=== PATIENT | female | born 1940 | race Caucasian/White ===

== ENCOUNTER 2017-05-30 16:54 | Inpatient (IN) | payer MEDICARE, BC ==
[~2017-05-30] VITALS: Ht 160 cm; Wt 54.9 kg
[2017-05-30 16:54] VITALS: BP 136/71
[~2017-05-30 16:54] MED LIST: ADVAIR HFA 230M12 GM INH; AEROSPAN8.9 GM IH; ALBUTEROL2.5 MG/0.5 INH; ALLEGRA ALLERGY60 MG PO; AMLODIPINE BESY10 MG PO; ASPIR 8181 MG PO; BACTRIM DS TAB1 EACH PO; BUMETANIDE0.25 MG/1 PO; CATAPRES0.2 MG PO; DOXYCYCLINE 10100 MG PO; DULCOLAX5 MG PO; FLAGYL500 MG PO; IBUPROFEN 800800 M1 PO; MIACALCIN3.7 ML NS; MIRALAX17 GM PO; NEXIUM40 MG PO; NORCO 5-325 TA1 EACH PO; REFRESH TEARS15 ML OP; SINGULAIR 10 MG10 M1 PO; SYSTANE ULTRA1 EACH OP; TOPICORT15 G2 TP; TRIAMCINOLONE A80 GM TRANSDERM; VITAMIN D1000 UNI1 PO; ZADITOR5 M1 OPHTHALMIC; ZPAK PO; [UNRECOGNIZED DRUG - OTHER] TOP
[2017-05-30] MEDS ORDERED: VITAMIN D3400 UNIT PO (17:02)
[2017-05-30] MEDS ORDERED: VITAMIN D1000 UNI1 PO (17:02)
[2017-05-30] MEDS ORDERED: HYDROCHLOROTH12.5 M1 PO (17:02)
[2017-05-30] MEDS ORDERED: SINGULAIR 10 MG10 M1 PO (17:02)
[2017-05-30] MEDS ORDERED: ELIQUIS5 MG PO (17:03)
[2017-05-30] MEDS ORDERED: FOLIC ACID1 MG PO (17:03)
[2017-05-30] MEDS ORDERED: TRAMADOL 50 MG50 MG PO (17:03)
[2017-05-30] MEDS ORDERED: VENTOLIN HFA 1818 GM INH (17:03)
[2017-05-30] MEDS ORDERED: NORVASC10 MG PO (17:03)
[2017-05-30] MEDS ORDERED: METAMUCIL1 EAC1 PO (17:04)
[2017-05-30] MEDS ORDERED: NATURE'S TEARS15 M1 OPHTHALMIC (17:04)
[2017-05-30] MEDS ORDERED: ALLERGY EYE DRO10 ML OPHTHALMIC (17:04)
[2017-05-30] MEDS ORDERED: MIRALAX17 GM PO (17:04)
[2017-05-30] MEDS ORDERED: SYNTHROID25 MCG PO (17:05)
[2017-05-30] MEDS ORDERED: ASPIR 8181 MG PO (17:05)
[2017-05-30] MEDS ORDERED: OMEPRAZOLE 20 M20 M1 PO (17:05)
[2017-05-30] MEDS ORDERED: LASIX 40 MG TAB40 M2 PO (17:05)
[2017-05-30] MEDS ORDERED: POTASSIUM20 PO (17:05)
[2017-05-30] MEDS ORDERED: ENSURE PO (17:06)
[2017-05-30] MEDS ORDERED: OSELB75 PO (17:06)
[2017-05-30] MEDS ORDERED: ATIVAN0.5 MG PO (17:06)
[2017-05-30 18:34] LABS: HEMATOCRIT 37.2 % (37.0-47.0); HEMOGLOBIN 11.9 gm/dL (12.0-15.0); MCH 28.4 pg (26.0-34.0); MCHC 31.9 g/dL (28.0-37.0); MPV 7.6 fl. (7.2-11.1); NUCLEATED RBCS 0 /100WBC; PLATELET COUNT* 327 thou/uL (150-400); RBC 4.18 mil/uL (4.20-5.00); RDW-CV 15.8 % (10.5-14.5); WBC 15.1 thou/uL (4.0-11.0)
[2017-05-30 18:49] LABS: BE 10.4 mmol/L (-2 to +3); HCO3 36.3 mmol/L (22.0-26.0); PO2 77.7 mmHg (75.0-100.0); pH 7.441 (7.340-7.450)
[2017-05-30 18:53] LABS: PCO2 54.5 mmHg (35.0-45.0)
[2017-05-30 19:08] LABS: ABSOLUTE LYMPHOCYTES 0.6 thou/uL (0.8-5.3); ABSOLUTE MONOCYTES 0.5 thou/uL (0.0-1.2)
[2017-05-30 19:09] LABS: PLATELET ESTIMATE ADEQUATE
[2017-05-30 20:02] LABS: CALCIUM 9.1 mg/dL (8.5-10.1); CREATININE 0.9 mg/dL (0.6-1.3); MAGNESIUM 2.1 mg/dL (1.8-2.4); TOTAL PROTEIN 8.8 g/dL (6.4-8.2)
[2017-05-30 20:03] LABS: ALBUMIN 2.4 g/dL (3.4-5.0)
[2017-05-30 20:05] LABS: POTASSIUM 2.7 mmol/L (3.5-5.1)
[2017-05-30 20:07] LABS: TOTAL BILIRUBIN 0.3 mg/dL (<0.1-1.0)
[2017-05-30 20:54] VITALS: BP 114/55
--- NOTE | 2017-05-30 21:07 | NUR ---
MOVING PT FROM ROOM TO TRANSFER TO FLOOR. PT'S SAT DECREASED TO [address] SHIELDS NOTIFIED AND NON REBREATHER MASK PLACED ON PT AND IV FLUID BOLUS OF NS AT 500CC PER HOUR DISCONTINUED
--- NOTE | 2017-05-30 21:28 | NUR ---
PT IS 98 PERCENT ON NON REBREATHER MASK.. PT BREAKING IN HIVES NOW. VANCOMYCIN STOPPED PER DR SHIELDS. 30ML INFUSED. PT IS GOING TO GET BENADRYL 25 MG
--- NOTE | 2017-05-30 21:39 | NUR ---
MAT [facility] CALLED AND NOTIFIED OF FLUID CHANGES , OXYGEN SAT., PT'S CHANGE TO A NON REBREATHER AT 15 ML. STOPPAGE OF VANCOMYCIN AND BENADRYL 25 MG ADMINISTRATION
--- NOTE | 2017-05-30 21:59 | NUR ---
DR DOS SANTOS CALLED AND NOTIFIED OF VANCOMYCIN REACTION, FLUID INFUSION, DECREASED O2 SAT'S AND CHANGE TO VENTI MASK PER DR SHIELDS, MEDICATION ADMINISTRATION AND LOW POTASSIUM
[2017-05-30 22:30] VITALS: BP 119/58
[2017-05-31 03:53] VITALS: BP 125/67
[2017-05-31 04:52] LABS: BE 2.3 mmol/L (-2 to +3); HCO3 27.3 mmol/L (22.0-26.0); PCO2 43.7 mmHg (35.0-45.0); PO2 68.1 mmHg (75.0-100.0); pH 7.413 (7.340-7.450)
[2017-05-31 05:05] LABS: ABSOLUTE LYMPHOCYTES 0.3 thou/uL (0.8-5.3); ABSOLUTE MONOCYTES 0.1 thou/uL (0.0-1.2); ABSOLUTE NEUTROPHILS 12.4 thou/uL (1.6-8.1); BASOPHILS 0.1 %; HEMATOCRIT 35.2 % (37.0-47.0); HEMOGLOBIN 11.2 gm/dL (12.0-15.0); LYMPHOCYTES 2.5 %; MCH 28.5 pg (26.0-34.0); MCHC 31.8 g/dL (28.0-37.0); MCV 89.8 fL (80.0-100.0); MONOCYTES 1.1 %; MPV 7.7 fl. (7.2-11.1); NUCLEATED RBCS 0 /100WBC; PLATELET COUNT* 311 thou/uL (150-400); POLYS 96.3 %; RBC 3.92 mil/uL (4.20-5.00); RDW-CV 15.8 % (10.5-14.5); WBC 12.9 thou/uL (4.0-11.0)
--- NOTE | 2017-05-31 05:09 | NUR ---
PT TO FLOOR AT 2200 AND ASSUMED CARE. PT ON 10L HIGH FLOW. PT HAS CONFUSION AT HS PER SON. PT IS BEDREST. X1-2 ASSIST. FLUIDS RUNNING 150 ML/H. CONTINIOUS O2 MONITOR. O2 SAT IS 94-97. PT MED/SURG. VITALS WNL. FALL PRECAUITONS IN PLACE. HOURLY ROUNDING FOR SAFETY.
[2017-05-31 05:20] LABS: CALCIUM 8.7 mg/dL (8.5-10.1); CREATININE 0.8 mg/dL (0.6-1.3); POTASSIUM 3.6 mmol/L (3.5-5.1)
[2017-05-31 08:30] VITALS: BP 131/62
--- NOTE | 2017-05-31 12:56 | NUR ---
CM ASSESSMENT: Pt is A&Ox1-2. Resides at [facility]. Spoke with Pt's son, Kam. Pt is [place] bound and requires total assists with ADLs. Pt had been on o2 since this past Monday, when she was diagnosed with Type A flu. Goal is for Pt to return to [facility] at dc, confirmed that Pt can return with Chau, admissions at [facility]. Following for dc needs.
--- NOTE | 2017-05-31 16:40 | NUR ---
RECEIVED REPORT FROM NOC RN. PT SITTING UPRIGHT IN BED, LEANING FORWARD. PT APPEARS WEAK, UNABLE TO COMMUNICATE NEEDS TO STAFF. VS OBTAINED, ASSESSMENT COMPLETE. MED/SURG STATUS. NO C/O PAIN. PT HAS CONGESTED COUGH BUT UNABLE TO EXPECTORATE SPUTUM. IV FLUIDS INFUSING ORDERED. ASSISTED WITH MILK AND ORANGE JUICE, PT REFUSES SOLID FOOD. PT SKIN REDDENED, YET BLANCHABLE, ON PERINIUM AND COCCYGEAL AREA. Q2 TURNS BY STAFF ARE NOT TOLERATED WELL BY PATIENT. PT STATES SHE WANTS STAFF TO TAKE PILLOWS/WEDGES OUT. POSITIONED BED IN REVERSE TRENDELENBERG WITH HOB UP, PT DID NOT TOLERATE THIS POSITION EITHER. PROVIDING FREQUENT INCONTINENCE CARE AND APPLYING BARRIER CREAM TO PERINIUM AND COCCYGEAL AREA. DURING ROUNDING, FOUND PT TO HAVE TAKEN OFF GOWN AND PULLED IV OUT. CHANGED LINENS/GOWNS AND RESTARTED IV IN R UE. PT ELIZABETH WELL. PROVIDED EDUCATION ABOUT NEED TO SHIFT WEIGHT SIDE TO SIDE TO MAINTAIN SKIN INTEGRITY. NEEDS REINFORCEMENT OF TEACHING. FREQUENT OBSERVATION WITH HOURLY ROUNDING. NEEDED ITEMS AND CALL LIGHT IN REACH.
--- NOTE | 2017-05-31 17:33 | EKG ---
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 RO : 1940 Requested By: Eloina Pizano Order Number: [id number] MD: Wyatt Trevizo Measurements Intervals Sperry Rate: 112 P: UT: QRS: -21 QRSD: 100 T: 140 QT: 314 QTc: 429 Interpretive Statements Atrial fibrillation Left axis deviation Nonspecific repol abnormality, diffuse leads Compared to ECG 01/10/2015 00:08:18 Sinus rhythm no longer present First degree AV block no longer present Electronically Signed On 05-31-2017 17:33:37 PHONE TRIAGE SPECIALIST by Wyatt Trevizo [email or web address] <ELECTRONICALLY SIGNED> By: Wyatt Trevizo MD, FACC 05/31/17 1733 1659 1659 Wyatt Trevizo MD, FAC /EPI
[2017-05-31 20:10] VITALS: BP 124/71
[2017-06-01 04:30] VITALS: BP 123/62
--- NOTE | 2017-06-01 04:57 | NUR ---
PT ALERT TO SELF AND CONFUSED AT HS. PT TOOK OF O2 SAT DROPED TO LOW 80'S, O2 REPLACED AND SAT IS 100 ON 10L HIGH FLOW. Q2 TURNS. MED SURGE PT. PT ON BEDREST. VITALS WNL. FALL PRECAUTIONS IN PLACE. HOURLY ROUNDING FOR SAFETY.
[2017-06-01 04:59] LABS: ABSOLUTE LYMPHOCYTES 0.4 thou/uL (0.8-5.3); ABSOLUTE MONOCYTES 0.2 thou/uL (0.0-1.2); ABSOLUTE NEUTROPHILS 7.1 thou/uL (1.6-8.1); BASOPHILS 0.1 %; HEMOGLOBIN 10.8 gm/dL (12.0-15.0); LYMPHOCYTES 5.1 %; MCH 28.5 pg (26.0-34.0); MCHC 31.7 g/dL (28.0-37.0); MCV 89.9 fL (80.0-100.0); MONOCYTES 2.9 %; NUCLEATED RBCS 0 /100WBC; PLATELET COUNT* 315 thou/uL (150-400); POLYS 91.9 %; RBC 3.78 mil/uL (4.20-5.00); RDW-CV 15.5 % (10.5-14.5); WBC 7.7 thou/uL (4.0-11.0)
[2017-06-01 05:24] LABS: CALCIUM 8.6 mg/dL (8.5-10.1); CREATININE 0.8 mg/dL (0.6-1.3); POTASSIUM 3.4 mmol/L (3.5-5.1)
[2017-06-01 05:57] LABS: BE 6.1 mmol/L (-2 to +3); HCO3 33.3 mmol/L (22.0-26.0); pH 7.347 (7.340-7.450)
[2017-06-01 06:00] LABS: PCO2 62.2 mmHg (35.0-45.0); PO2 165.9 mmHg (75.0-100.0)
[2017-06-01 08:00] VITALS: BP 119/72
--- NOTE | 2017-06-01 11:26 | CON ---
[address] [address] CONSULTATION Name: CHRIS BYRNE Room: [address] IN .R.#: [id number] Admission: 05/30/17 Attend Phys: Xenia Oconnell Discharge: Date of : 36 Report #: [id number] THIS REPORT FOR: //name// CC: Wyatt Boyle DATE OF SERVICE: 05/31/2017 INFECTIOUS DISEASE CONSULTATION ATTENDING PHYSICIAN: Arturo Boyle DO REASON FOR EVALUATION: Influenza complicated by pneumonitis. HISTORY OF PRESENT ILLNESS: Chart reviewed, patient examined. A 76-year-old woman with history of some asthma, question COPD who was evaluated in the Emergency Room, was confirmed to have influenza A the day prior, had progressive shortness of breath, was found to have oxygen saturations in the 80%. She appears to be quite ill, has poor appetite with p.o. intake, has not had significant cough. No nausea or diarrhea. She was empirically placed on linezolid in addition to Tamiflu. ALLERGIES: Listed to PENICILLINS, CEPHALOSPORINS, QUINOLONES. CURRENT MEDICATIONS: Include apixaban, linezolid, levothyroxine, pantoprazole, furosemide, aspirin, amlodipine, Tamiflu, p.r.n. analgesics, antiemetics, methylprednisolone. PAST MEDICAL AND SURGICAL HISTORY: As noted above, history of hypertension, arthritis, reflux and recurrent urinary tract infections, right iliac vein thrombosis, history of leukemia, previous cholecystectomy, hemorrhoidectomy. SOCIAL HISTORY: Nonsmoker, no ethanol. FAMILY HISTORY: Noncontributory. REVIEW OF SYSTEMS: As above. PHYSICAL EXAMINATION: GENERAL: She appears chronically ill with acute distress. She has decreased responsiveness, appears markedly undernourished. VITAL SIGNS: Temperature 98.3, pulse 97, respirations 20, blood pressure 125/67. SKIN: Warm, dry. HEENT: Unremarkable. NECK: [place] [address] CONSULTATION Name: MOLLY HESTERCHRIS E Room: [address]#: [id number] Admission: 05/30/17 Attend Phys: Xenia Oconnell Discharge: Date of : 38 Report #: [id number] LUNGS: Diminished breath sounds. HEART: Regular. Borderline tachycardic. I do not appreciate any murmur. ABDOMEN: Soft. There are no apparent peritoneal signs. GENITOURINARY: Deferred. RECTAL: Deferred. LABORATORY DATA: TSH of 1.065. Blood cultures negative thus far. Prealbumin 11.4. Electrolytes: Sodium 142, potassium 3.6, chloride 102, bicarbonate is 32, BUN and creatinine 41 and 0.8, estimated GFR of 69. CBC: White count 12.9, H and H 11.2 and 35.2, platelets of 311. She has a lymphocytopenia of 300. ABGs: A pH 7.413, pCO2 of 43.7, pO2 of 68.1 on 10 liters. Albumin of 2.4, total protein of 8.8 and LFTs unremarkable. Chest x-ray, some vascular congestion with diffuse infiltrate, more focal bilateral infiltrates suggesting pneumonitis. Lactic acid of 1.3. ASSESSMENT AND PLAN: Influenza perhaps complicated by early pneumonitis. We will continue the linezolid as an antibacterial. We will add gram-negative coverage. She certainly looks as if she may have some occult process. We will check serum protein electrophoresis given the elevated serum protein count. She is quite tenuous at this point. We will have to monitor expectantly, may worsen before she improves. <ELECTRONICALLY SIGNED> By: Sal Sharma MD 06/01/17 1126 1514 [id number] Sharma MD /nt
--- NOTE | 2017-06-01 11:37 | CON ---
[address] [address] CONSULTATION Name: CHRIS BYRNE Room: [address] IN ..#: [id number] Admission: 05/30/17 Attend Phys: Xenia Oconnell Discharge: Date of : 36 Report #: [id number] THIS REPORT FOR: //name// CC: Wyatt Boyle REASON FOR CONSULTATION: Respiratory failure. HISTORY OF PRESENT ILLNESS: The patient is a 76-year-old female patient who is a poor historian. I did review the medical records and discussed with the nursing staff. She presented and admitted through the Emergency Room with shortness of breath that started on the 05/30/2017 in the morning hours. She had the diagnosis of influenza A the day prior to hospitalization. Her O2 saturation was noted to be in 80%, although it improved with nasal cannula and actually at one point, she was placed on nonrebreather. Apparently, her son was in the ER who confirmed that she was on Tamiflu that started the day before hospitalization, but she continued to decline. Overnight, the patient's oxygen need increased. She is currently on 15 liters oxygen, although she is 95% on 15 liters. She looks comfortable to me. She said she smoked for a long time, but she quit. She is not sure if she has COPD and she does not have oxygen at home. Her ABGs upon presentation showed mild hypercapnia; however, the hypercapnia increased with the repeat ABGs, although the pH remained normal. ALLERGIES: CEPHALEXIN, LATEX, LEVOFLOXACIN, AND PENICILLIN. MEDICATIONS AT HOME: She is on apixaban, tramadol, hydrochlorothiazide, Lasix, levothyroxine, potassium supplement, aspirin, Singulair. PAST MEDICAL HISTORY: Includes history of PE, history of muscle weakness, history of leukemia, history of thrombosis of the right iliac vein, history of gastroesophageal reflux disease, asthma. PAST SURGICAL HISTORY: Include left arm surgery, hemorrhoidectomy, cholecystectomy, left breast cyst removal. SOCIAL HISTORY: The patient told me she smoked before, but she quit smoking. Does not drink alcohol excessively, does not abuse drugs. FAMILY HISTORY: Reviewed and noncontributory. REVIEW OF SYSTEMS: 14 systems reviewed with patinet, negative other than what is mentioned above, but please note ptient is a poor historian PHYSICAL EXAMINATION: VITAL SIGNS: She is on 15 liters oxygen, O2 saturation 95%, [place] [address] CONSULTATION Name: CHRIS BYRNE Room: [address]#: [id number] Admission: 05/30/17 Attend Phys: Xenia Oconnell Discharge: Date of : 36 Report #: [id number] 123/62, pulse rate of 92, temperature 36.2. GENERAL: Thin lady lying in bed, poor historian, overall comfortable, not in distress, although she is on 15 liters oxygen. HEENT: Head normocephalic, atraumatic. Pupils are equal, reactive to light. External ear looks healthy and normal. Oral cavity, Mallampati of 2, moist mucous membrane. NECK: Supple. No palpable lymph node. No palpable thyroid. Trachea central. HEART: S1, S2. No murmur, no gallop. CHEST: Diminished air movement bilaterally. No definite wheezes or added sounds, although poor air movement, some localized rhonchi on the left lung base. ABDOMEN: Benign, soft, lax, nontender. No rebound, no rigidity. Positive bowel sounds. EXTREMITIES: Lower extremity, no calf tenderness, no clubbing, no cyanosis and no edema noted. NEUROLOGIC: Alert. SKIN: Normal for age and race, warm and dry. LYMPHATICS: No palpable lymph node. She had chest x-ray during this hospitalization that showed vascular congestion with diffuse infiltrates suggesting edema and basilar infiltrates. Her white blood count was 15.1 and upon hospitalization improved to 7.7, hemoglobin of 11.9 and platelets of 327 with slight left shift on the differential. ABGs, she had 3 sets of ABGs, the last set 7.34/62/165 and this was done on 15 liters oxygen. Her creatinine today is 0.8, potassium is 3.4, BUN 50 and glucose 169. CURRENT MEDICATIONS: It was noted she was started on Lasix IV today. She is on apixaban, she on aztreonam, she is on Zyvox, she is on Tamiflu, hydrochlorothiazide, Norvasc, lorazepam, guaifenesin and potassium replacement protocol. IMPRESSION: 1. Acute hypoxemic respiratory failure and hypercapnic respiratory failure. 2. Pneumonia. 3. Vascular congestion, suggestive of fluid overload, possible congestive heart failure. 4. Chronic obstructive pulmonary disease exacerbation. 5. history of leukemia. PLAN: At this point, I would continue current therapy. She is on apixaban with a chest x-ray showing congestion. I agree with IV diuresis, keeping her negative fluid balance. I would continue the steroids. I just added scheduled nebulization treatment. There is questionable aspiration, so I asked speech to see her. We will keep her n.p.o. except medications untill she is evaluated by speech. We will do repeat ABG and chest x-ray in the morning. [address] [address] CONSULTATION Name: CHRIS BYRNE Room: [address] IN ..#: [id number] Admission: 05/30/17 Attend Phys: Xenia Oconnell Discharge: Date of : 38 Report #: [id number] Thank you for the consult. We will follow along with you. <ELECTRONICALLY SIGNED> By: Huber Bhagat MD 06/01/17 1137 1037 [id number] Bhagat MD /nt
[2017-06-01 11:58] VITALS: BP 114/43
--- NOTE | 2017-06-01 19:45 | NUR ---
ASSUMED PT CARE AT 0730, FULL ASSESMENT DONE CHARTED. PT NOT PROGRESSING TOWARD GOALS. PT ORINETED X2, C/O PAIN IN HEAD, ATTEMPTED TO GIVE PT TRAMADOL, SHE REFUSED TO DRINK. PT ON 10L HIGH FLOW NC, ABNORMAL ABGS REPORTED BY NIGHT RN, PULMONOLGIST IN TO SEE PT. ORDERED BIPAP. SPEECH ASSESED PT THIS EVENING. PT ABLE TO DRINK HONEY THICK LIQUIDS. PT PLACED BACK ON BIPAP BUT CONSTANTLY TAKES IT OFF OR PULLS ON IT. PT EDUCATED SEVERAL TIMES THAT SHE NEEDS TO LEAVE IT IN PLACE. PT FOUND WITH IT OFF AT SHIFT CHANGE, ATTEMPTING TO DRINK. PT REFUSES TO HAVE IT ON. PT PLACED ON 10 L HIGH FLOW. PTS BOTTOM RED, PICTURE TAKEN AND WOUND NURSE CONSULT PLACED. PT TURNED Q 2 HRS, IS INCONT OF URINE. PTS SON HERE THIS EVENING, EDUCATED ON PLAN OF CARE. REPORT GIVEN TO ONCOMING RNJACQUELIN.
[2017-06-01 21:02] VITALS: BP 132/65
[2017-06-02 04:00] VITALS: BP 125/70
--- NOTE | 2017-06-02 05:06 | NUR ---
PT IS ABLE TO COMMUNICATE HER NEEDS TO STAFF WITH MINOR DIFFICULTY; SHE IS FORGETFUL AND OFTEN CALLS OUT INSTEAD OF USING HER CALL LIGHT. SHE CALLS FREQUENTLY BECAUSE SHE FORGETS THAT SHE HAD JUST CALLED. CURRENT PAIN MEDICATION REGIMEN HAS BEEN ADEQUATE FOR CONTROLLING HER PAIN UP TO THIS TIME. DROPLET ISOLATION PRECAUTIONS FOR POSITIVE FLU SWAB MAINTAINED. SHE REFUSED TO WEAR HER BIPAP FOR MORE THAN 1HR OVERNIGHT, DESPITE SEVERAL ATTEMPTS TO KEEP IT ON HER. SHE HAS ALSO REFUSED SCHEDULED TURNS SAYING SHE IS "CROOKED" OR "UNCOMFORTABLE". SHE IS TENTAIVELY SCHEDULED FOR A VIDEO SWALLOW STUDY TODAY.
[2017-06-02 05:36] LABS: CALCIUM 8.7 mg/dL (8.5-10.1); CREATININE 0.9 mg/dL (0.6-1.3); POTASSIUM 3.5 mmol/L (3.5-5.1)
[2017-06-02 06:01] LABS: BE 6.6 mmol/L (-2 to +3); HCO3 32.6 mmol/L (22.0-26.0); PO2 97.1 mmHg (75.0-100.0)
--- NOTE | 2017-06-02 09:12 | NUR ---
Nutrition: Pt admitted with Influenza A. Assessed for pressure ulcer risk. Coccyx/bottom is only red, per RN note. Patient turned for skin integrity. Wt: 124#. RX noted. H/o CKD II, GERD, HTN. Ground diet, Honey thickened. Loose BM 05/31. Albumin 2.4, prealbumin 11.4. No nutrition intervention needed at this time. Please offer Beneprotein if po intake <60% of meals, or if pt develops a wound. Mild risk.
[2017-06-02 09:30] VITALS: BP 114/70
--- NOTE | 2017-06-02 11:14 | NUR ---
WOUND CARE NOTE: CONSULT RECEIVED FOR POSSIBLE COCCYX WOUND. PATIENT PRESENTS WITH BLANCHABLE REDENSS TO ENTIRE SACROCOCCYGEAL REGION, WHICH HAS STARTED TO RESOLVE ONCE TURNED. PATIENT DOES COMPLAIN OF PAIN AT HER TAILBONE. AT THE COCCYX THERE IS A SMALL AREA, APPROXIMATELY 0.2X0.2X0.1 AREA OF PARTIAL THICKNESS TISSUE LOSS, BUT DO NOT BELIEVE IT IS A PRESSURE ULCER. PATIENT IS INCONTINENT, ASSISTED WITH CHANGING CHUX. APPLIED BARRIER OINTMENT AND TURNED PATIENT TO HER RIGHT SIDE. EDUCATED PATIENT ON IMPORTANCE OF STAYING OFF AREA, BUT WILL NEED REINFORCEMENT SHE IS CONFUSED AND DESIRES TO STAY IN AN UPRIGHT POSITION WITHOUT POSITIONING DEVICES. RECOMMEND TURN Q2 HOURS, LIMIT HOB <30 DEGREES BARRIER OINTMENT BID AND PRN FREQUENT CHECKS FOR INCONTINENCE LIMIT LAYERS OF LINEN UNDER PATIENT
[2017-06-02 11:30] VITALS: BP 120/54
[2017-06-02 12:11] LABS: GLOBULIN TOTAL 5.1 g/dL (2.2-3.9); M-SPIKE 2.5 g/dL (Not Observed)
--- NOTE | 2017-06-02 18:09 | NUR ---
ASSUMED PT CARE AT 0700 PT IS CONFUSED WILL NOT USE CALL LIGHT SCREAMS OUT FOR HELP AND THEN WILL NOT BE ABLE TO TELL YOU WHAT PT WANTS, PT BUTTOCK IS RED WOUND CARE ASSESSED PT AND ORDERED FOR PT TO BE TURNED Q 2 HOURS AND OFFLOAD PT IS UPSET ABOUT THIS WANTS TO SIT ALL THE WAY UP IN BED UNABLE TO SINCE PT CAN NOT BE MORE THAN 30 DEGREES PER WOUND CARE, PT IS INCONTIENT, PT IS MED SURG, PT HEART RATE IS TACHY PT HAS SOME ANXIETY, VIDEO SWALLOW DONE AND SPEECH RECOMMENDS THAT PT HAS ALTERNATIVE METHODS FOR FOOD AND MEDICATIONS PT IS NPO EXCEPT ICE CHIPS AND SMALL SIPS OF WATER WITH SPOON, PT IS ON 6-7L/HIFLOW OXYGEN, WILL CONTINUE TO MONITOR
[2017-06-02 20:00] VITALS: BP 135/63
[2017-06-03] VITALS: BP 130/62
[2017-06-03 05:24] LABS: HEMATOCRIT 32.7 % (37.0-47.0); HEMOGLOBIN 10.9 gm/dL (12.0-15.0); MCH 29.1 pg (26.0-34.0); MCHC 33.2 g/dL (28.0-37.0); MCV 87.6 fL (80.0-100.0); MPV 8.2 fl. (7.2-11.1); NUCLEATED RBCS 0 /100WBC; PLATELET COUNT* 295 thou/uL (150-400); RBC 3.74 mil/uL (4.20-5.00); RDW-CV 15.4 % (10.5-14.5); WBC 6.1 thou/uL (4.0-11.0)
[2017-06-03 06:02] LABS: BE 9.8 mmol/L (-2 to +3); HCO3 35.5 mmol/L (22.0-26.0); PO2 108.8 mmHg (75.0-100.0)
[2017-06-03 06:04] LABS: CALCIUM 8.4 mg/dL (8.5-10.1); CREATININE 0.7 mg/dL (0.6-1.3); POTASSIUM 3.1 mmol/L (3.5-5.1)
[2017-06-03 07:18] LABS: ABSOLUTE LYMPHOCYTES 0.2 thou/uL (0.8-5.3); ABSOLUTE MONOCYTES 0.1 thou/uL (0.0-1.2); ABSOLUTE NEUTROPHILS 5.9 thou/uL (1.6-8.1); PLATELET ESTIMATE ADEQUATE
--- NOTE | 2017-06-03 07:30 | NUR ---
PATIENT RESTING IN BED. REPORT GIVEN TO ONCOMING NURSE. REMAINS IN ISOLATION FOR FLU +. BED ALARM ON. WILL MONITOR.
[2017-06-03 09:30] VITALS: BP 149/79
--- NOTE | 2017-06-03 15:39 | NUR ---
ASSUMED PT CARE AT 0700 PT IS ALERT TO SELF PT IS A FALL RISK BED ALARM IS ON, PT WILL NOT KEEP OXYGEN ON HAVE TO REEDUCATE PT TO KEEP O2 ON SO PT CAN BREATHE, PT WILL NOT USE CALLLIGHT SCREAMS OUT INAAPROPRIATELY STAFF HAS BEEN IN ROOM FREQUENTLY, PT DENIES PAIN, PT IN IN ISOLATION FOR FLU, PT REFUSES TO BE TURNED PT REFUSES TO KEEP HEAD OF BED AT 30 WILL CONTINOUSLY SCREAM OUT REEDUCATE PT ON THE PURPOSE OF KEEPING THE HOB AT 30 TO PREVENT SKIN BREAKDOWN PT HAS REDNESS ON COCCYX AND HAS PAIN, WILL CONTINUE TO MONITOR
[2017-06-03 16:37] VITALS: BP 136/66
--- NOTE | 2017-06-03 17:03 | NUR ---
ORDERS RECEIVED AND COMPUTERIZED DOCUMENTATION REVIEWED. PER CASE MANAGEMENT REPORT, PATIENT IS W/C BOUND AND REQUIRES TOTAL ASSISTANCE. SKILLED P.T. IS NOT WARRANTED A RESULT, PATIENT PATIENT IS ALREADY FUNCTIONING AT HER BASE-LINE MOBILITY STATUS. THANK-YOU FOR THIS REFERRAL. SNEHAL SMITH,MPT
[2017-06-03 19:45] VITALS: BP 136/69
[2017-06-04] VITALS: BP 136/67
[2017-06-04 05:15] LABS: HEMATOCRIT 34.7 % (37.0-47.0); HEMOGLOBIN 11.4 gm/dL (12.0-15.0); MCH 28.9 pg (26.0-34.0); MCHC 32.8 g/dL (28.0-37.0); MCV 88.3 fL (80.0-100.0); MPV 8.3 fl. (7.2-11.1); RBC 3.93 mil/uL (4.20-5.00); RDW-CV 15.5 % (10.5-14.5); WBC 6.8 thou/uL (4.0-11.0)
--- NOTE | 2017-06-04 05:21 | NUR ---
END SHIFT: PT HAS BEEN RESTLESS AND YELLING OUT ALL SHIFT. PT IS VERY CONFUSED. DROPLET PRECAUTIONS MAINTAINED. SWALLOW PRECAUTIONS MAINTAINED. PT IS MORE WEAK THIS AM. WITH MORNING MEDICATIONS PT WAS UNABLE TOLERATE SPOONFUL OF WATER WITH CRUSHED MEDICATIONS. HAS REMAINED STRICT NPO AFTER THIS. 7 LITERS HIGH FLOW NC. SAFETY PRECAUTIONS IN PLACE. PERFORMED HOURLY ROUNDING. WILL CONT TO MONITOR.
[2017-06-04 05:50] LABS: ALBUMIN 2.3 g/dL (3.4-5.0); CALCIUM 8.4 mg/dL (8.5-10.1); CREATININE 0.7 mg/dL (0.6-1.3); POTASSIUM 3.6 mmol/L (3.5-5.1); TOTAL BILIRUBIN 0.3 mg/dL (<0.1-1.0); TOTAL PROTEIN 6.7 g/dL (6.4-8.2)
[2017-06-04 09:57] VITALS: BP 165/75
--- NOTE | 2017-06-04 14:55 | NUR ---
ASSUMED CARES AT 0700 WITH BEDSIDE REPORT. PT IN BED, BED IN LOW AND LOCKED POSITION WITH BED ALARM ON FOR PT SAFETY. CALL BUTTON IN REACH. PT A&O X2-3, VERY CONFUSED AND FORGETFUL, REPEATS QUESTIONS AND STATEMENTS MULTIPLE TIMES. PT YELLS OUT FOR HELP EVEN WITH STAFF RIGHT NEXT TO HER PROVIDING CARES. VSS ON 7L O2 HIGH FLOW. O2 STATS HOLDING BETWEEN 98-100% WITH CONTINUOUS PULSEOX MONITORING WITH PROBE ON RIGHT GREAT TOE. HOURLY ROUNDING AND Q2 TURNS CONTINUE. BUTTOCK COLOR IMPROVING, LESS RED. MD ORDERS UP WITH ASSIST TOLERATED. PT MED SURG STATUS, NO TELE. HR IRREGULAR AND OCC TACHYCARDIC PER AUSCULTATION APICAL AND RADIAL PULSES. AFEBRILE, PERRL, HEELS FLOATED WITH PILLOWS, LOTION ON LE, JUDITH CARE, BED BATH PROVIDED. PT ASPIRATION RISK PER SWALLOW STUDY, ICE CHIPS PROVIDED, MEDS CRUSHED IN PUDDING AND GIVEN WITH SMALL BITES SLOWLY TOLERATED, NO CHOKING. IV ABT INFUSING, TOLERATED, NO AVR. PT NPO TO MEALS AT THIS TIME. BED LINES CHANGED. PT PUSHES BUTTONS GREASE PRESS HELPER BUTTON RANDOMLY WITHOUT KNOWING WHICH BUTTON SHE IS PRESSING. NURSE WATCHED PT PRESS TV CHANNELS UP AND DOWN WITHOUT LOOKING AT TV, PRESSING RED NURSE CALL BUTTON WITH STAFF AT BEDSIDE. WILL CONTINUE TO MONITOR PT PROGRESS SHE STAYS ON DROPLET PRECAUTIONS FOR INFLUENZA AT THIS TIME.
[2017-06-04 17:00] VITALS: BP 140/71
--- NOTE | 2017-06-04 17:21 | NUR ---
PT TRANSFERED TO ROOM 305 AT 1715. ALL OF PT BELONGINGS PACKED AND TAKEN WITH PT. IV MEDICATIONS PULLED FROM 2W MED ROOM AND TAKEN TO 3, CHART AND ISOLATION CART TAKEN WITH PT. REPORT TO STAN JANSEN NURSE GIVEN VIA PHONE. PT STABLE, ALERT, QUIET, COOPERATIVE AT TRANSFER.
--- NOTE | 2017-06-04 19:36 | NUR ---
PATIENT TRANSFERRED TO ROOM 305 THIS EVENING. NO DISTRESS NOTED, PATIENT COMPLIANT WITH CARE AND ASSESSMENT. DENIES PAIN, CONT TO TURN EVERY 2 HRS, SIDE TO SIDE. INCONTINENT OF BOWEL AND BLADDER, HIGH RISK FOR ALTERATION IN SKIN INTEGRITY, SKIN WARM, DRY, INTACT, SACRAL AREA WITH SLIGHT REDNESS, FREE OF OPEN AREAS OR PRESSURE INJURY . NS INFUSING @ 30 ML/HR VIA 20G TO LEFT UPPER ARM WITHOUT DIFFICULTY. TOLERATES THICKENED LIQUID WITHOUT DIFFICULTY. VITAL SIGNS STABLE, NO DISTRESS NOTED, CONTINUES ON DROPLET PRECAUTIONS FOR POTENTIAL VIRUS.
[2017-06-04 22:00] VITALS: BP 130/74
[2017-06-05 04:27] LABS: MCH 29.1 pg (26.0-34.0); MCHC 34.4 g/dL (28.0-37.0); MCV 84.4 fL (80.0-100.0); MPV 7.9 fl. (7.2-11.1); RBC 3.79 mil/uL (4.20-5.00); RDW-CV 15.6 % (10.5-14.5); WBC 7.6 thou/uL (4.0-11.0)
[2017-06-05 06:07] LABS: ALBUMIN 2.3 g/dL (3.4-5.0); CALCIUM 8.5 mg/dL (8.5-10.1); CREATININE 0.7 mg/dL (0.6-1.3); TOTAL BILIRUBIN 0.4 mg/dL (<0.1-1.0); TOTAL PROTEIN 6.7 g/dL (6.4-8.2)
[2017-06-05 06:13] LABS: POTASSIUM 2.6 mmol/L (3.5-5.1)
--- NOTE | 2017-06-05 06:45 | NUR ---
PT AWAKE AND HOLLERING "HELLO" AND "HELP ME" A GOOD PART OF THE NIGHT. FREQUENTLY REQUESTING A DRINK OF WATER. WATER GIVEN PER MOUTH SWABS AND SIP PER SPOON. MEDS GIVEN CRUSHED WITH SCANT AMOUNT OF PUDDING, SWALLOWING PRECAUTIONS IN EFFECT. CONFUSED. REMAINS ON DROPLET ISOLATION FOR INFLUENZA, TAMIFLU GIVEN ORDERED. AM LABS DRAWN. INCONTINENT URINE, JUDITH CARE GIVEN. PT TURNED Q2 HOURS AND PRN FOR SKIN CARE AND COMFORT. L UPPER ARM IVF INFUSING PER PUMP, ABX GIVEN ORDERED. CRITICAL POTASSIUM THIS MORNING, IV POTASSIUM INFUSION STARTED. O2 7L HI ROBERT CANULA. JUDITH AREA AND BUTTOCKS RED, JUDITH CARE GIVEN, TURNS, AND BARRIER CREAM APPLIED. BED ALARM ON FOR SAFETY, CALL LITE IN EASY REACH.
[2017-06-05 08:00] VITALS: BP 165/76
--- NOTE | 2017-06-05 11:51 | NUR ---
DARCY was informed by med student, Richard, that Dr Boyle may be having a conversation with pt family regarding possibility and options for TPN. DARCY called and spoke with son Kam to explain that Dr Boyle will be contacting pt son today and received best number to be: [phone] and best timing to be this afternoon.
[2017-06-05 11:55] LABS: URINE BILIRUBIN NEGATIVE (Negative); URINE BLOOD NEGATIVE (Negative); URINE CLARITY CLEAR; URINE COLOR YELLOW; URINE GLUCOSE-RANDOM NEGATIVE (Negative); URINE KETONES NEGATIVE (Negative); URINE LEUKOCYTES-REFLEX NEGATIVE (Negative); URINE NITRITE-REFLEX NEGATIVE (Negative); URINE PROTEIN NEGATIVE (Negative); URINE UROBILINOGEN 0.2 E.U./dl (0.2-1.0)
--- NOTE | 2017-06-05 14:58 | NUR ---
Nutrition: Follow up: Per chart review, possibility of TPN start. Pt has been tolerating thickened liquids well. She is currently NPO. +BM 06/04. Na 147, K+ 2.6, alb 2.3, prealbumin up to 34.7. Jareth 11. Will await POC and follow up tomrrow 06/06/17.
[2017-06-05 16:00] VITALS: BP 135/63
--- NOTE | 2017-06-05 16:29 | 2DMMODE ---
[place] [address] 2 D/M-MODE ECHOCARDIOGRAM Name: CHRIS BYRNE Room: [address] ADM IN [facility]#: [id number] Admission: 05/30/17 Attend Phys: Arturo Boyle Discharge: Date of : 36 Date of Service: 06/05/17 1628 Report #: [id number] THIS REPORT FOR: //name// APPROVED REPORT Study performed: 06/05/2017 14:39:01 EXAM: Comprehensive 2D, Doppler, and color-flow Echocardiogram Patient Location: In-Patient Room #: [facility] Status: routine BSA: 1.56 HR: 121 bpm BP: 165/76 mmHg Rhythm: NSR Other Information Study Quality: Good Indications Dyspnea Influenza 2D Dimensions LVEF(%): 56.57 (>50%) IVSd: 13.26 (7-11mm) LVOT Diam: 18.07 (18-24mm) LVDd: 25.26 mm PWd: 12.84 (7-11mm) Ascending Ao: 27.12 (22-36mm) LVDs: 18.16 (25-40mm) Aortic Root: 26.13 mm Hurst's LVEF: 56.57 % Volumes Left Atrial Volume (Systole) LA ESV Index: 55.10 mL/m2 Aortic Valve AoV Peak Efren.: 2.08 m/s AO Peak Gr.: 17.32 mmHg LVOT Max P.08 mmHg AO Mean Gr.: 9.38 mmHg LVOT Mean P.40 mmHg LVOT Max V: 1.42 m/s AO V2 VTI: 33.37 cm LVOT Mean V: 0.98 m/s OWEN (VTI): 1.43 cm2 LVOT V1 VTI: 18.54 cm [place] [address] 2 D/M-MODE ECHOCARDIOGRAM Name: CHRIS BYRNE Room: [address] IN ..#: [id number] Admission: 05/30/17 Attend Phys: Arturo Boyle Discharge: Date of : 36 Date of Service: 06/05/17 1628 Report #: [id number] MV Decel. Time: 195.56 ms MV PHT: 56.71 ms MVA (PHT): 3.88 cm2 TDI Medial E' Efren.: 0.10 m/s Lateral E' Efren.: 0.09 m/s Pulmonary Valve PV Peak Efren.: 1.29 m/s PV Peak Gr.: 6.63 mmHg Tricuspid Valve TR Peak Gr.: 49.98 mmHg RVSP: 55.00 mmHg Left Ventricle The left ventricle is normal size. There is normal LV segmental wall motion. Mild concentric left ventricular hypertrophy. Left ventricular systolic function is normal. The left ventricular ejection fraction is within the normal range. LVEF is 65-70%. The left ventricular diastolic function is normal. Right Ventricle The right ventricle is normal size. The right ventricular systolic function is normal. Atria Left atrium is severely dilated. The right atrium size is normal. Aortic Valve Moderate aortic valve sclerosis. Mild aortic regurgitation. Mild aortic stenosis. Mitral Valve Moderate mitral annular calcification. Mild mitral regurgitation. No evidence of mitral valve stenosis. Tricuspid Valve The tricuspid valve is normal in structure. Moderate tricuspid regurgitation. The RVSP is 55-60 mmHg. Pulmonic Valve The pulmonary valve is normal in structure. There is no pulmonic valvular regurgitation. [place] [address] 2 D/M-MODE ECHOCARDIOGRAM Name: CHRIS BYRNE Room: [address] IN [facility]#: [id number] Admission: 05/30/17 Attend Phys: Arturo Boyle Discharge: Date of : 36 Date of Service: 06/05/17 1628 Report #: [id number] The aortic root is normal in size. IVC is normal in size and collapses with >50% inspiration Pericardium There is no pericardial effusion. Left pleural effusion. <Conclusion> Mild concentric left ventricular hypertrophy. LVEF is 65-70%. Left atrium is severely dilated. Mild aortic stenosis. Mild aortic regurgitation. Mild mitral regurgitation. Moderate tricuspid regurgitation. The RVSP is 55-60 mmHg. <ELECTRONICALLY SIGNED> By: Jorge Villa MD, FACC 06/05/17 1628 27 27 Jorge Villa MD, FAC /INF
--- NOTE | 2017-06-05 19:43 | NUR ---
RESUMED CARE THIS AM. ALERT TO SELF, DENIES PAIN. TOO WEAK TO REPOSITION SELF, NO TRUNCAL STRENGTH TO MAINTAIN UPRIGHT POSITION. CONSTANTLY REQUESTING HOB TO BE ELEVATED, THOUGH HOB ELEVATED TO MAX DEGREE. PATIENT ALSO REQUESTING TO HAVE COMPLETE BED ELEVATED, "CLOSER TO THE CEILING". UNABLE TO REDIRECT, PATIENT DEMANDING THAT STAFF REMAIN IN ROOM AFTER PROVIDING CARES. PROCAL STARTED VIA 20G TO RIGHT UPPER ARM, ELIZABETH IV ABT WITHOUT ADR. GI CONSULT IN FOR PEG PLACEMENT IN NEAR FUTURE, SON AT BEDSIDE THIS AFTERNOON. UNABLE TO COUGH WELL ENOUGH TO CLEAR SECRETIONS, LUNGS COARSE. CONTINUOUSLY INCONTINENT, REPOSITIONED FREQUENTLY, JUDITH CARE GIVEN WITH INCONTINENCE, CALL LIGHT IN REACH, CONT ON DROPLET PRECAUTION.
[2017-06-05 22:45] VITALS: BP 146/75
--- NOTE | 2017-06-06 00:31 | NUR ---
ASSESSMENT COMPLETE. PT UP MOST OF THE NIGHT CONFUSED AND ASKING FOR WATER. PT EDUCATED ON NPO ORDER AND MOUTH SWABS GIVEN. PT DENIES PAIN. PT IS ON 4L PER NC WITH ADEQUATE SATS. PT IS IN ISOLATION FOR FLU +. PT GIVEN IV ANTIBIOTICS AND IV FLUIDS INFUSING ORDERED. PT IS INCONT. Q2 TURN FOR SKIN INTEGRITY. SKIN INTACT. PT IS FALL RISK, BED ALARM ON. SEE ASSESSMENT AND VITALS FOR OTHER DETAILS. CALL LIGHT WITHIN REACH, WILL CONTINUE TO MONITOR.
--- NOTE | 2017-06-06 04:39 | NUR ---
PATIENT FOUND AT 0225, JAGDISH SWARTZ CALLED AND CPR BEGAN. SEE JAGDISH SWARTZ FLOWSHEET FOR DETAILS. FAMILY NOTIFIED AND HOME CALLED.
--- NOTE | 2017-06-06 05:17 | NUR ---
PATIENT DC'D WITH HOME AT 0515. BELONGINGS SENT WITH FAMILY. PAPERWORK IN CHART
== END 2017-06-06 03:11 | DRG 871 ==
LOC: M.ERS 16:54 → M.TBA-ER 18:22 → M.2W 18:22 → M.3W 06-04 17:18
PROVIDERS: Family Medicine; Internal Medicine; Personal Emergency Response Attendant; Specialist; ADMIT Internal Medicine
PROC: 5A09357 Assistance with Respiratory Ventilation, Less than 24 Consecutive Hours, Continuous Positive Airway Pressure (ICD-10-PCS; principal; 2017-06-01)
DX: A41.9 Sepsis, unspecified organism (principal); J69.0 Pneumonitis due to inhalation of food and vomit; J96.02 Acute respiratory failure with hypercapnia; J96.01 Acute respiratory failure with hypoxia; G92 Toxic encephalopathy; E43 Unspecified severe protein-calorie malnutrition; J44.1 Chronic obstructive pulmonary disease with (acute) exacerbation; M19.90 Unspecified osteoarthritis, unspecified site; K21.9 Gastro-esophageal reflux disease without esophagitis; J11.1 Influenza due to unidentified influenza virus with other respiratory manifestations; N18.2 Chronic kidney disease, stage 2 (mild); I12.9 Hypertensive chronic kidney disease with stage 1 through stage 4 chronic kidney disease, or unspecified chronic kidney disease; E03.9 Hypothyroidism, unspecified; F41.9 Anxiety disorder, unspecified; D64.9 Anemia, unspecified; E87.6 Hypokalemia; Z86.718 Personal history of other venous thrombosis and embolism; Z87.440 Personal history of urinary (tract) infections; Z85.6 Personal history of leukemia; Z88.0 Allergy status to penicillin; Z88.1 Allergy status to other antibiotic agents; Z90.49 Acquired absence of other specified parts of digestive tract; Z86.711 Personal history of pulmonary embolism; Z87.891 Personal history of nicotine dependence; Z79.899 Other long term (current) drug therapy; Z91.040 Latex allergy status; Z68.21 Body mass index [BMI] 21.0-21.9, adult